=== PATIENT | male | born 1940 | race Caucasian/White ===

== ENCOUNTER → 2018-01-01 09:49 | Outpatient (CLI) | payer MEDICARE, SELFPAY ==
[2018-01-01 10:40] LABS: Add Manual Diff / Slide Review NO; Basophils Percent Auto 1.1 % (0-2); Eosinophils Percent Auto 2.6 % (2-4); Hematocrit 45.9 % (41-53); Hemoglobin 16.1 g/dL (13.5-17.5); Mean Corpuscular HGB Conc 35.1 % (30-36); Mean Corpuscular Hemoglobin 31.3 PG (26-34); Mean Corpuscular Volume 89.1 fL (80-100); Monocytes Percent Auto 8.9 % (3-14); Neutrophils Absolute Auto 3400 /uL (3000-5900); Neutrophils Percent Auto 68.4 % (50-75); Platelet Count 249 X10^3/uL (150-400); Red Blood Cell Count 5.15 X10^6/uL (4.5-5.9); Red Cell Distribution Width 14.2 % (11.6-14.8)
[2018-01-01 11:08] LABS: Alanine Aminotransferase 35 IU/L (21-72); Albumin Globulin Ratio 1.4 (1.0-2.8); Alkaline Phosphatase 48 U/L (38-126); Aspartate Aminotransferase 28 IU/L (17-59); BUN Creatinine Ratio 31.4 (6-22); Bilirubin Total 1.1 mg/dL (0.2-1.3); Blood Urea Nitrogen 22 mg/dL (9-20); Calcium 9.5 mg/dL (8.4-10.2); Carbon Dioxide 30 mmol/L (22-32); Chloride 106 mmol/L (98-107); Cholesterol 131 mg/dL (140-199); Estimated Glomerular Filt Rate > 60.0 mL/min (>60); Globulin 2.8 g/dL (1.7-4.1); Glucose 100 mg/dL (80-110); HDL Cholesterol 42 mg/dL (40-60); HEMOLYSIS < 15 (0-50); LDL Cholesterol Calculated 75 mg/dL (<100); Potassium 4.6 mmol/L (3.4-5.1); Sodium 143 mmol/L (137-145); Total Protein 6.8 g/dL (6.3-8.2); Triglycerides 71 mg/dL (35-150)
[2018-01-01 11:23] LABS: Free T3, Triiodothyronine Free 3.18 pg/mL (2.77-5.27)
[2018-01-01 11:36] LABS: Thyroid Stimulating Hormone 2.26 uIU/mL (0.47-4.68)
== END ==
PROVIDERS: PCP Internal Medicine; Visit Provider Internal Medicine
DX: I67.89 Other cerebrovascular disease (principal); I48.91 Unspecified atrial fibrillation; E78.00 Pure hypercholesterolemia, unspecified; E03.9 Hypothyroidism, unspecified
CPT/HCPCS: 36415; 80053; 80061; 84439; 84443; 84481; 85025

== ENCOUNTER → 2018-03-12 09:53 | Outpatient (CLI) | payer MEDICARE, SELFPAY ==
[2018-03-12 11:10] LABS: Erythrocyte Sedimentation Rate 2 MM/HR (0-15)
[2018-03-12 11:45] LABS: Rheumatoid Factor < 8.6 IU/mL (<12.0)
[2018-03-14 13:01] LABS: Angiotensin Converting Enzyme 36 U/L (9-67)
[2018-03-14 14:59] LABS: RPR Screen Nonreactive (Nonreactive)
[2018-03-14 18:06] LABS: HLA B27 POSITIVE (Negative)
[2018-03-14 20:35] LABS: 18 kD IgG Band Nonreactive; 23 kD IgG Band Nonreactive; 28 kD IgG Band Nonreactive; 30 kD IgG Band Nonreactive; 39 kD IgG Band Nonreactive; 41 kD IgG Bands Nonreactive; 45 kD IgG Band Nonreactive; 58 kD IgG Band Nonreactive; 66 kD IgG Band Nonreactive; 93 kD IgG Bands Nonreactive
== END ==
PROVIDERS: Family Provider Internal Medicine; PCP Internal Medicine; Visit Provider Ophthalmology
DX: H20.9 Unspecified iridocyclitis (principal)
CPT/HCPCS: 36415; 82164; 85651; 86430; 86592; 86618; 86780; 86812

== ENCOUNTER → 2018-03-24 09:25 | Outpatient (CLI) | payer MEDICARE, SELFPAY ==
--- NOTE | 2018-03-24 | DI.ECHO.S_ITS ---
[facility] +---------+ : : [address] : [address] [address] : : : : [id number] : : : : Phone: [phone]+ Echocardiogram Report + + :Name: ANURADHA HERMAN Study Date: 03/24/2018 Height: 70 in : :[facility] Exam Location: [facility] Weight: 220 lb : : Gender: Male BSA: 2.2 m2 : :: 1940 Age: 78 yrs BP: 112/72 mmHg: :Reason For Study: Atrial Fibrillation : :Ordering Physician: Yessy : :Manish Hargrove Performed By: Jolene Ventuar : :Referring: YESSY HARGROVE : + + Interpretation Summary 1) Mild concentric left ventricular hypertrophy with mildly reduced systolic function (EF about 45%). Global hypokinesis present. 2) Normal right ventricular size and function. 3) The left atrium is severely dilated. 4) No significant valvular abnormalities. 5) The ascending aorta is mildly enlarged at 4.1cm. 6) No prior Echo available for comparison. Procedure: A two-dimensional transthoracic echocardiogram with color flow and Doppler was performed. The study quality was technically adequate. There is no prior echocardiogram noted for this patient. The patient was in atrial fibrillation with heart rates between 49-80 bpm during the exam. Left Ventricle: The left ventricle is normal in size. There is mild concentric left ventricular hypertrophy. Proximal septal thickening is noted. Left ventricular ejection fraction is estimated to be 45 +/- 5%. (Zbwv-ny-tuna variability due to atrial fibrillation). Left ventricular systolic function is mildly reduced. There is mild global hypokinesis of the left ventricle. Diastolic function could not be accurately assessed due to atrial fibrillation. Right Ventricle: The right ventricle is normal in size and function. Atria: The left atrium is severely dilated. The right atrium is mild to moderately dilated. The interatrial septum is intact with no evidence for an atrial septal defect. Mitral Valve: The mitral valve is normal in structure and function. There is trace mitral regurgitation. Aortic Valve: The aortic valve is trileaflet. The aortic valve opens well. There is mild aortic valve sclerosis. There is no hemodynamically significant valvular aortic stenosis. There is trace aortic regurgitation. Tricuspid Valve: The tricuspid valve is normal in structure and function. There is mild to moderate tricuspid regurgitation. The right ventricular systolic pressure is estimated to be at least 26 mmHg based on an estimated right atrial pressure of 3 mm Hg. Pulmonic Valve: The pulmonic valve is not well seen, but is grossly normal. There is a trace or physiologic amount of pulmonic regurgitation. Great Vessels: The aortic root is normal size. The ascending aorta is mildly enlarged. The IVC is of normal diameter and collapses greater than 50% with a sniff. This suggests a low right atrial pressure of 3 mm Hg. Pericardium/ Pleura There is an anterior echo-free space consistent with a fat pad. There is no pericardial effusion. There is no pleural effusion. MMode/2D Measurements & Calculations LVIDd: 5.3 cm LVOT diam: 2.7 cm LVIDs: 3.4 cm Ao root diam: 3.9 cm FS: 36.2 % asc Aorta Diam: 4.1 cm IVSd: 1.2 cm Ao Arch Diam (Prox Trans): 3.2 cm LVPWd: 1.8 cm LV rueda. diameter/BSA (cm/m^2): 2.4 LV sys. diameter/BSA (cm/m^2): 1.6 LA A2 area: 41.7 cm2 RA long axis: 5.6 cm LA A4 area: 34.4 cm2 RA area: 20.9 cm2 LA length (vol): 7.4 cm RA vol: 66.6 ml LA vol: 164.5 ml RA : 30.6 ml/m2 LA vol index: 75.7 ml/m2 TAPSE: 2.1 cm Doppler Measurements & Calculations Ao V2 max: 100.9 cm/sec LVOT Max Brian: 68.8 cm/sec Ao V2 mean: 68.7 cm/sec LV V1 max P.9 mmHg Ao max P.1 mmHg LV V1 VTI: 11.1 cm Ao mean P.1 mmHg INES(I,D): 3.5 cm2 Ao V2 VTI: 18.3 cm INES(V,D): 3.9 cm2 sev ratio: 0.61 INES indexed to BSA (cm^2/m^2): 1.6 TR max brian: 238.6 cm/sec SV(LVOT): 63.3 ml TR max P.9 mmHg PA V2 max: 48.1 cm/sec PA V2 mean: 30.3 cm/sec PA mean P.42 mmHg PA pr(Accel): 30.8 mmHg Reading Physician:02:10 PM
== END ==
PROVIDERS: PCP Internal Medicine; Visit Provider Internal Medicine Cardiovascular Disease
DX: I48.1 Persistent atrial fibrillation (principal); I07.1 Rheumatic tricuspid insufficiency
CPT/HCPCS: 93306

== ENCOUNTER → 2018-10-02 08:33 | Outpatient (CLI) | payer OTHER, SELFPAY ==
[2018-10-02 10:02] LABS: Thyroid Stimulating Hormone 2.35 uIU/mL (0.47-4.68)
== END ==
PROVIDERS: PCP Nurse Practitioner Family; Visit Provider Nurse Practitioner Family
DX: E03.9 Hypothyroidism, unspecified (principal)
CPT/HCPCS: 36415; 84443

== ENCOUNTER → 2023-05-05 15:57 | Outpatient (CLI) | payer OTHER, SELFPAY ==
--- NOTE | 2023-05-05 16:31 | DI.ECHO.S_ITS ---
ADULT ECHOCARDIOGRAM Name: ANURDAHA HERMAN Study Date: 05/05/2023, 4: 31 PM : 1940 BP: 138 / 95 mmHg Gender: Male Height: 70 in Age: 83 Years Weight: 225 lb BSA: 2.19 m?? Ordering: YESSY HARGROVE Referring: YESSY HARGROVE Clinician: Lenard Lenz Reason For Study: CARDIOMYOPATHY History: Summary Statements 1) Normal left ventricular size with low normal systolic function (EF 50-55%). 2) Mildly to moderately enlarged right ventricle with mildly reduced function. 3) There is mild aortic regurgitation. 4) Compared to the Echo done 03/24/2018, LVEF has improved from 45% to 50-55% on this study. Procedure: A two-dimensional transthoracic echocardiogram with color flow and Doppler was performed. The study quality was technically adequate. Comparison is made with the echocardiogram of 03/24/18. The patient was in atrial fibrillation with heart rates between 51-83 bpm during the exam. Left Ventricle: The left ventricle is normal in size. There is mild concentric left ventricular hypertrophy. The ejection fraction is estimated to be 50-55%. Right Ventricle: The right ventricle is mild to moderately dilated. Right ventricular systolic function is mildly reduced. Atria: The left atrium is mildly dilated. The right atrium is mildly dilated. Mitral Valve: The mitral valve is normal in structure and function. There is no mitral valve stenosis. There is mild to moderate mitral regurgitation. Aortic Valve: The aortic valve is trileaflet. There is no aortic valve stenosis. There is mild aortic regurgitation. Tricuspid Valve: The tricuspid valve is normal in structure and function. There has been no significant change since the previous study. There is mild tricuspid regurgitation. The right ventricular systolic pressure is estimated to be at least 33 mmHg based on an estimated right atrial pressure of 3 mm Hg. Pulmonic Valve: The pulmonic valve is not well visualized. There is no pulmonic valvular stenosis. There is no pulmonic valvular regurgitation. Great Vessels: The aortic root is borderline dilated. The ascending aorta is at the upper limits of normal in size. The inferior vena cava appeared normal. Pericardium/ Pleura: There is no pericardial effusion. There is no pleural effusion. 2D and M-Mode Measurements and Calculations LVIDd: 5.7 cm LVOT diam: 2.7 cm LVIDs: 4.0 cm Ao root diam: 3.8 cm IVSd: 1.33 cm asc Aorta Diam: 3.8 cm LVPWd: 1.09 cm Ao Arch Diam (Prox Trans): 3.2 cm LV rueda. diameter/BSA (cm/m^2): 2.6 LV sys. diameter/BSA (cm/m^2): 1.83 FS: 29.1 % RVD1 (basal): 5.6 cm IVC diam: 2.22 cm RVD2 (mid): 4.4 cm TAPSE: 1.98 cm LA A4 area: 28.8 cm?? RA area: 24.4 cm?? LA A2 area: 23.6 cm?? RA long axis: 5.6 cm LA length (vol): 6.7 cm RA vol: 89.6 ml LA vol: 86.7 ml RA : 40.8 ml/m?? LA vol index: 39.5 ml/m?? Doppler Measurements and Calculations Ao V2 max: 92.4 cm/sec LVOT Max Brian: 76.3 cm/sec Ao V2 mean: 64.9 cm/sec LV V1 max P.97 mmHg Ao V2 VTI: 16.7 cm LV V1 VTI: 15.4 cm Ao max P.4 mmHg Ao mean P.86 mmHg INES(I,D): 5.3 cm?? INES(V,D): 4.7 cm?? INES indexed to BSA (cm^2/m^2): 2.40 sev ratio: 0.92 MV E max brian: 67.2 cm/sec MV dec time: 0.18 sec MV A max brian: 21.0 cm/sec MV E/A: 3.2 Med Peak E' Brian: 8.6 cm/sec E/E' med: 7.8 Lat Peak E' Brian: 11.5 cm/sec E/E' lat: 5.8 E/e' average: 6.8 TR max brian: 264.6 cm/sec PA V2 max: 87.3 cm/sec TR max P.0 mmHg PA mean P.48 mmHg Yessy Hargrove Electronically signed by: Yessy Hargrove 05/05/2023, 5: 25 PM
== END ==
PROVIDERS: PCP Nurse Practitioner Family; Referring Provider Internal Medicine Cardiovascular Disease; Visit Provider Internal Medicine Cardiovascular Disease
DX: I42.9 Cardiomyopathy, unspecified (principal); I08.3 Combined rheumatic disorders of mitral, aortic and tricuspid valves
CPT/HCPCS: 93306

== ENCOUNTER → 2024-02-19 09:37 | Outpatient (CLI) | payer OTHER, SELFPAY ==
[2024-02-19 10:59] LABS: Hematocrit 45.4 % (41-53); Hemoglobin 15.6 g/dL (13.5-17.5); Mean Corpuscular HGB Conc 34.3 % (30-36); Mean Corpuscular Hemoglobin 31.5 PG (26-34); Mean Corpuscular Volume 91.9 fL (80-100); Platelet Count 247 X10^3/uL (150-400); Red Blood Cell Count 4.94 X10^6/uL (4.5-5.9); White Blood Cell Count 4.6 X10^3/uL (4.5-11.0)
[2024-02-19 11:10] LABS: BUN Creatinine Ratio 21.4 (6-22); Blood Urea Nitrogen 15 mg/dL (9-20); Calcium 9.9 mg/dL (8.4-10.2); Carbon Dioxide 25 mmol/L (22-32); Chloride 109 mmol/L (98-107); Cholesterol 130 mg/dL (140-199); Estimated Glomerular Filt Rate > 60 mL/min (>60); Glucose 97 mg/dL (80-110); HDL Cholesterol 46 mg/dL (40-60); HEMOLYSIS < 15 (0-50); LDL Cholesterol Calculated 73 mg/dL (<100); Potassium 4.4 mmol/L (3.4-5.1); Sodium 140 mmol/L (137-145); Triglycerides 56 mg/dL (35-150)
== END ==
LOC: LAB 09:39
PROVIDERS: PCP Nurse Practitioner Family; Referring Provider Internal Medicine Cardiovascular Disease; Visit Provider Internal Medicine Cardiovascular Disease
DX: E78.5 Hyperlipidemia, unspecified (principal); I48.19 Other persistent atrial fibrillation
CPT/HCPCS: 36415; 80048; 80061; 85027

== ENCOUNTER 2024-02-24 14:24 | Emergency (ER) | payer OTHER, SELFPAY ==
[2024-02-24] VITALS (35 sets, daily range): BP systolic 126–161; BP diastolic 64–100; PULSE 55–75; RESP 12–24; TEMP 36.9; O2SAT 94–98; BMI 31.5
--- NOTE | 2024-02-24 15:04 | DI.CT.S_ITS ---
PROCEDURE: CT HEAD/BRAIN WO CON INDICATIONS: confusion/headache TECHNIQUE: Noncontrast 4.5 mm thick angled axial sections acquired from the foramen magnum to the vertex, with coronal and sagittal reformats. For radiation dose reduction, the following was used: automated exposure control, adjustment of mA and/or kV according to patient size. COMPARISON: None. FINDINGS: Image quality: Diagnostic. CSF spaces: Basal cisterns are patent. No extra-axial fluid collections. The ventricles are symmetric in size and shape. Brain: Hemorrhagic mass in the left parietal lobe measuring 3.1 x 2.2 x 4.3 centimeter. Surrounding vasogenic edema but no significant mass effect. No midline shift. No herniation. Skull and face: Calvarium and visualized facial bones appear intact, without suspicious lesions. Sinuses: Visualized sinuses and mastoids are clear. 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 Differential does include intraparenchymal hemorrhage, although this would be less common in the absence of trauma or underlying process such as amyloidosis. Findings discussed with Dr. Luis at 3:39 p.m. On 02/24/2024. Dictated by: Talha Reed M.D. on 02/24/2024 at 15:37 Approved by: Talha Reed M.D. on 02/24/2024 at 15:40
--- NOTE | 2024-02-24 15:04 | DI.RAD.S_ITS ---
PROCEDURE: XR CHEST 1V INDICATIONS: altered mental status TECHNIQUE: One view of the chest was acquired. COMPARISON: None. FINDINGS: Surgical changes and devices: None. Lungs and pleura: Right middle lung zone consolidation. Mediastinum: Mediastinal contours appear normal. Heart size is enlarged. Bones and chest wall: No suspicious bony lesions. Overlying soft tissues appear unremarkable. IMPRESSION: Right middle lung zone consolidation concerning for pneumonia. Recommend follow-up in 1-2 months with chest x-ray to ensure resolution. Dictated by: Talha Reed M.D. on 02/24/2024 at 16:07 Approved by: Talha Reed M.D. on 02/24/2024 at 16:08
--- NOTE | 2024-02-24 15:20 | EKG_ITS ---
[address] [address] Test Date: 2024-02-24 Pat Name: Stephon Nunez Department: [facility] Room: Gender: Male Hall Worker: MELIDA : 1940 Requested By: Order Number: [id number] Reading MD: Toi Hernandez Measurements Intervals [place] Rate: 56 P: [place]: QRS: -16 QRSD: 92 T: 14 QT: 392 QTc: 378 Interpretive Statements Atrial fibrillation with slow ventricular response Electronically Signed On 02-25-2024 19:03:45 PST by Toi Hernandez
--- NOTE | 2024-02-24 15:29 | PC.NURSE ---
Per patient smile is always crooked. Hx of stroke in 2006 with no known lingering deficits.
--- NOTE | 2024-02-24 15:45 | ED_ITS ---
HPI - Altered Mental Status <Shauna Luis DO - Last Filed: 02/29/24 18:38> General Chief Complaint: Altered Mental Status Stated Complaint: Confusion, Problems w/Hand Eye Coordination Time Seen by Provider: 02/24/24 15:27 Source: RN notes reviewed and old records reviewed Mode of arrival: Ambulatory Limitations: no limitations History of Present Illness HPI narrative: 84-year-old history of atrial fibrillation on Eliquis patient presents with complaint of sudden onset headache yesterday developed confusion shortly thereafter. States headache was much more intense yesterday has improved but is still present today. He and his note he has had a lot more effort and having to focus and has been confused. Forgot how to use a remote control, walked into a door, he has had trouble with some daily activities. He has not had any neck pain. No numbness, tingling or weakness. He has been able to ambulate but has to be focused about where he is going. No nausea or vomiting. No chest pain or shortness of breath. He does not appreciate any speech changes. Has some macular degeneration states his vision is actually little bit better. No issues such as incontinence, no issues with bowel movements or urination. Patient has not had any swelling in extremities. Did not have any trauma or injuries that they recall. He states Eliquis as his only daily medication he takes this for atrial fibrillation states no medication for rate control. Had prior hernia repair. Questionable allergy to [place]. No tobacco, alcohol once yearly, no recreational drugs. Saw his organ tuner electronic who was concerned about bleed and sent patient for evaluation. Dr. Hargrove is his organ tuner electronic. Jolene Hawkins is his primary care provider. Related Data Allergies Allergy/AdvReac Type Severity Reaction Status Date / Time hydrocodone [From [place]] Allergy Rash Verified 02/24/24 14:51 Review of Systems <Shauna Luis DO - Last Filed: 02/29/24 18:38> Review of Systems ROS Unobtainable: All systems reviewed & are unremarkable except as noted in HPI and below Patient History <Shauna Luis DO - Last Filed: 02/29/24 18:38> Social History Smoking Status: Never smoker Smoking Status: Never smoker alcohol intake frequency: holidays/special occasions only Substance Use Type: marijuana Exam <Shauna Luis DO - Last Filed: 02/29/24 18:38> Narrative Exam Narrative: GEN: well nourished, well appearing male, alert and oriented x 3, patient appears to be in mild distress. HEENT: Atraumatic, pupils are equal round reactive to light, extraocular movements are intact, nares are clear, TMs are clear with no fluid, there is no conjunctival pallor. Throat is clear without any exudates, erythema, tonsillar enlargement or uvular deviation, patient has some mild right facial droop with patient family state that is normal HEART: Regular rate and rhythm without murmur, clicks, rubs. Pulses are equal in upper and lower extremities LUNGS:Lungs clear to auscultation, no wheezes, rales, crackles, chest moves symmetrically ABD:bowel sounds normal, soft, non-tender, no guarding, rebound, rigidity, no masses noted, no hepatosplenomegaly :No CVA tenderness MSCL: Non-tender, no muscle atrophy, muscles strength 5/5 upper and lower extremities,no drift, full range of motion NEURO:CN 2-12 intact, sensation normal, finger nose finger test normal on right, mild difficulty on left. heel mcarthur test normal bilaterally. Initial Vital Signs Initial Vital Signs: Vital Signs Temperature 98.5 F 02/24/24 14:51 Pulse Rate 55 L 02/24/24 14:51 Respiratory Rate 16 02/24/24 14:51 Blood Pressure 135/88 02/24/24 14:51 Pulse Oximetry 97 02/24/24 14:51 Oxygen Delivery Method Room Air 02/24/24 14:51 <Elvi Lei DO - Last Filed: 02/25/24 02:06> Initial Vital Signs Initial Vital Signs: Vital Signs Temperature 98.5 F 02/24/24 14:51 Pulse Rate 55 L 02/24/24 14:51 Respiratory Rate 16 02/24/24 14:51 Blood Pressure 135/88 02/24/24 14:51 Pulse Oximetry 97 02/24/24 14:51 Oxygen Delivery Method Room Air 02/24/24 14:51 Scores <Shauna Luis DO - Last Filed: 02/29/24 18:38> GCS Reji coma scale eye opening: Spontaneous Reji coma scale verbal response: Orientated Reji coma scale motor response: Obey commands [place] coma scale total score: 15 <Elvi Lei, DO - Last Filed: 02/25/24 02:06> GCS Reji coma scale total score: 15 Course <Shauna Luis, DO - Last Filed: 02/29/24 18:38> Orders Ordered: Discontinued Medications Acetaminophen (Acetaminophen 325 Mg Tablet) 975 mg PO NOW ONE Stop: 02/24/24 20:02 Last Admin: 02/24/24 20:03 Dose: 975 mg Documented By: NOEMI Prothrombin Complex Concent ( Human) 2,000 unit/Miscellaneous 80 mls @ 718.488 mls/hr IV NOW ONE; Protocol Stop: 02/24/24 15:59 Last Infusion: 02/24/24 16:55 Dose: Infused Documented By: Admin: 02/24/24 16:29 Dose: 2.1 unit/kg/min, 504 mls/hr Documented By: MARIANN Morphine Sulfate (Morphine 2 Mg/Ml Inj) 2 mg IV NOW ONE Stop: 02/25/24 00:03 Last Admin: 02/25/24 00:06 Dose: 2 mg Documented By: NOEMI Ondansetron HCl (Ondansetron 4 Mg/2 Ml Inj) 4 mg IV NOW ONE Stop: 02/25/24 00:03 Last Admin: 02/25/24 00:06 Dose: 4 mg Documented By: NOEMI Vital Signs Vital signs: Vital Signs - 8 hr 02/24/24 18:42 02/24/24 18:45 02/24/24 18:46 Pulse Rate 67 72 Respiratory Rate 20 Blood Pressure 159/79 H Pulse Oximetry 96 97 Oxygen Delivery Method Room Air 02/24/24 19:00 02/24/24 19:00 02/24/24 19:15 Pulse Rate 69 Respiratory Rate 20 Blood Pressure 146/77 H 134/74 Pulse Oximetry 97 Oxygen Delivery Method 02/24/24 19:15 02/24/24 19:30 02/24/24 19:30 Pulse Rate 64 59 L Respiratory Rate 19 19 Blood Pressure 144/84 H Pulse Oximetry 96 97 Oxygen Delivery Method Room Air Room Air 02/24/24 19:45 02/24/24 19:45 02/24/24 20:00 Pulse Rate 59 L 66 Respiratory Rate 13 14 Blood Pressure 141/82 H Pulse Oximetry 96 95 Oxygen Delivery Method Room Air 02/24/24 20:00 02/24/24 20:15 02/24/24 20:15 Pulse Rate 61 Respiratory Rate 16 Blood Pressure 140/88 138/85 Pulse Oximetry 96 Oxygen Delivery Method 02/24/24 20:30 02/24/24 20:30 02/24/24 20:45 Pulse Rate 61 Respiratory Rate 15 Blood Pressure 141/70 H 134/79 Pulse Oximetry 96 Oxygen Delivery Method Room Air 02/24/24 20:45 02/24/24 21:00 02/24/24 21:00 Pulse Rate 72 56 L Respiratory Rate 12 15 Blood Pressure 134/91 H Pulse Oximetry 96 96 Oxygen Delivery Method Room Air Room Air 02/24/24 21:15 02/24/24 21:15 02/24/24 21:30 Pulse Rate 57 L Respiratory Rate 19 Blood Pressure 140/73 156/77 H Pulse Oximetry 97 Oxygen Delivery Method Room Air 02/24/24 21:30 02/24/24 21:45 02/24/24 21:45 Pulse Rate 63 69 Respiratory Rate 13 17 Blood Pressure 143/94 H Pulse Oximetry 96 97 Oxygen Delivery Method Room Air 02/24/24 22:00 02/24/24 22:09 02/24/24 22:09 Pulse Rate 58 L 71 Respiratory Rate 24 Blood Pressure 141/78 H Pulse Oximetry 96 96 Oxygen Delivery Method Room Air 02/24/24 22:15 02/24/24 22:15 02/24/24 22:30 Pulse Rate 66 70 Respiratory Rate 19 16 Blood Pressure 155/73 H Pulse Oximetry 96 97 Oxygen Delivery Method Room Air 02/24/24 22:30 02/24/24 22:45 02/24/24 22:45 Pulse Rate 67 Respiratory Rate 17 Blood Pressure 141/74 H 130/64 Pulse Oximetry 95 Oxygen Delivery Method 02/24/24 23:00 02/24/24 23:00 02/24/24 23:15 Pulse Rate 58 L Respiratory Rate 18 Blood Pressure 126/64 135/67 Pulse Oximetry 96 Oxygen Delivery Method Room Air 02/24/24 23:15 02/24/24 23:30 02/24/24 23:30 Pulse Rate 62 75 Respiratory Rate 14 20 Blood Pressure 147/79 H Pulse Oximetry 96 96 Oxygen Delivery Method 02/24/24 23:45 02/24/24 23:45 02/25/24 00:00 Pulse Rate 74 Respiratory Rate 17 Blood Pressure 148/100 H 151/87 H Pulse Oximetry 96 Oxygen Delivery Method Room Air 02/25/24 00:00 02/25/24 00:14 02/25/24 00:22 Pulse Rate 75 78 Respiratory Rate 14 15 Blood Pressure 129/76 Pulse Oximetry 97 Oxygen Delivery Method Room Air 02/25/24 00:22 02/25/24 00:30 02/25/24 01:00 Pulse Rate 85 85 75 Respiratory Rate 21 18 Blood Pressure Pulse Oximetry 95 95 Oxygen Delivery Method 02/25/24 01:19 02/25/24 01:19 Pulse Rate 77 Respiratory Rate 21 Blood Pressure 142/71 H Pulse Oximetry 96 Oxygen Delivery Method Room Air <Elvi Lei DO - Last Filed: 02/25/24 02:06> Orders Ordered: Discontinued Medications Acetaminophen (Acetaminophen 325 Mg Tablet) 975 mg PO NOW ONE Stop: 02/24/24 20:02 Last Admin: 02/24/24 20:03 Dose: 975 mg Documented By: NOEMI Prothrombin Complex Concent ( Human) 2,000 unit/Miscellaneous 80 mls @ 718.488 mls/hr IV NOW ONE; Protocol Stop: 02/24/24 15:59 Last Infusion: 02/24/24 16:55 Dose: Infused Documented By: Admin: 02/24/24 16:29 Dose: 2.1 unit/kg/min, 504 mls/hr Documented By: MARIANN Morphine Sulfate (Morphine 2 Mg/Ml Inj) 2 mg IV NOW ONE Stop: 02/25/24 00:03 Last Admin: 02/25/24 00:06 Dose: 2 mg Documented By: NOEMI Ondansetron HCl (Ondansetron 4 Mg/2 Ml Inj) 4 mg IV NOW ONE Stop: 02/25/24 00:03 Last Admin: 02/25/24 00:06 Dose: 4 mg Documented By: NOEMI Vital Signs Vital signs: Vital Signs - 8 hr 02/24/24 18:42 02/24/24 18:45 02/24/24 18:46 Pulse Rate 67 72 Respiratory Rate 20 Blood Pressure 159/79 H Pulse Oximetry 96 97 Oxygen Delivery Method Room Air 02/24/24 19:00 02/24/24 19:00 02/24/24 19:15 Pulse Rate 69 Respiratory Rate 20 Blood Pressure 146/77 H 134/74 Pulse Oximetry 97 Oxygen Delivery Method 02/24/24 19:15 02/24/24 19:30 02/24/24 19:30 Pulse Rate 64 59 L Respiratory Rate 19 19 Blood Pressure 144/84 H Pulse Oximetry 96 97 Oxygen Delivery Method Room Air Room Air 02/24/24 19:45 02/24/24 19:45 02/24/24 20:00 Pulse Rate 59 L 66 Respiratory Rate 13 14 Blood Pressure 141/82 H Pulse Oximetry 96 95 Oxygen Delivery Method Room Air 02/24/24 20:00 02/24/24 20:15 02/24/24 20:15 Pulse Rate 61 Respiratory Rate 16 Blood Pressure 140/88 138/85 Pulse Oximetry 96 Oxygen Delivery Method 02/24/24 20:30 02/24/24 20:30 02/24/24 20:45 Pulse Rate 61 Respiratory Rate 15 Blood Pressure 141/70 H 134/79 Pulse Oximetry 96 Oxygen Delivery Method Room Air 02/24/24 20:45 02/24/24 21:00 02/24/24 21:00 Pulse Rate 72 56 L Respiratory Rate 12 15 Blood Pressure 134/91 H Pulse Oximetry 96 96 Oxygen Delivery Method Room Air Room Air 02/24/24 21:15 02/24/24 21:15 02/24/24 21:30 Pulse Rate 57 L Respiratory Rate 19 Blood Pressure 140/73 156/77 H Pulse Oximetry 97 Oxygen Delivery Method Room Air 02/24/24 21:30 02/24/24 21:45 02/24/24 21:45 Pulse Rate 63 69 Respiratory Rate 13 17 Blood Pressure 143/94 H Pulse Oximetry 96 97 Oxygen Delivery Method Room Air 02/24/24 22:00 02/24/24 22:09 02/24/24 22:09 Pulse Rate 58 L 71 Respiratory Rate 24 Blood Pressure 141/78 H Pulse Oximetry 96 96 Oxygen Delivery Method Room Air 02/24/24 22:15 02/24/24 22:15 02/24/24 22:30 Pulse Rate 66 70 Respiratory Rate 19 16 Blood Pressure 155/73 H Pulse Oximetry 96 97 Oxygen Delivery Method Room Air 02/24/24 22:30 02/24/24 22:45 02/24/24 22:45 Pulse Rate 67 Respiratory Rate 17 Blood Pressure 141/74 H 130/64 Pulse Oximetry 95 Oxygen Delivery Method 02/24/24 23:00 02/24/24 23:00 02/24/24 23:15 Pulse Rate 58 L Respiratory Rate 18 Blood Pressure 126/64 135/67 Pulse Oximetry 96 Oxygen Delivery Method Room Air 02/24/24 23:15 02/24/24 23:30 02/24/24 23:30 Pulse Rate 62 75 Respiratory Rate 14 20 Blood Pressure 147/79 H Pulse Oximetry 96 96 Oxygen Delivery Method 02/24/24 23:45 02/24/24 23:45 02/25/24 00:00 Pulse Rate 74 Respiratory Rate 17 Blood Pressure 148/100 H 151/87 H Pulse Oximetry 96 Oxygen Delivery Method Room Air 02/25/24 00:00 02/25/24 00:14 02/25/24 00:22 Pulse Rate 75 78 Respiratory Rate 14 15 Blood Pressure 129/76 Pulse Oximetry 97 Oxygen Delivery Method Room Air 02/25/24 00:22 02/25/24 00:30 02/25/24 01:00 Pulse Rate 85 85 75 Respiratory Rate 21 18 Blood Pressure Pulse Oximetry 95 95 Oxygen Delivery Method 02/25/24 01:19 02/25/24 01:19 Pulse Rate 77 Respiratory Rate 21 Blood Pressure 142/71 H Pulse Oximetry 96 Oxygen Delivery Method Room Air MDM - Altered Mental Status <Shauna Luis, DO - Last Filed: 02/29/24 18:38> Lab Data 02/24/24 15:35 02/24/24 15:35 Labs: Lab Results 02/24/24 02/24/24 Range/Units 15:35 16:58 WBC 6.0 (4.5-11.0) X10^3/uL RBC 5.07 (4.5-5.9) X10^6/uL Hgb 15.8 (13.5-17.5) g/dL Hct 46.9 (41-53) % MCV 92.5 (80-100) fL MCH 31.2 (26-34) PG MCHC 33.7 (30-36) % RDW 13.8 (11.6-14.8) % Plt Count 229 (150-400) X10^3/uL Neut % (Auto) 75.5 H (50-75) % Lymph % (Auto) 14.5 L (25-40) % [place] % (Auto) 7.4 (3-14) % Eos % (Auto) 1.9 L (2-4) % Baso % (Auto) 0.7 (0-2) % Neut # (Auto) 4600 (6121-5383) /uL Lymph # (Auto) 900 L (1177-3936) /uL [place] # (Auto) 400 (0-900) /uL Eos # (Auto) 100 (0-450) /uL Baso # (Auto) 0 (0-100) /uL PT 16.4 H (9.4-12.5) SECONDS INR 1.5 H (0.9-1.3) APTT 44 H (25.1-36.5) SECONDS Sodium 138 (137-145) mmol/L Potassium 4.1 (3.4-5.1) mmol/L Chloride 107 (98-107) mmol/L Carbon Dioxide 26 (22-32) mmol/L BUN 15 (9-20) mg/dL Creatinine 0.71 (0.66-1.25) mg/dL Estimated GFR > 60 (>60) mL/min BUN/Creatinine Ratio 21.1 (6-22) Glucose 121 H (80-110) mg/dL Calcium 10.0 (8.4-10.2) mg/dL Total Bilirubin 1.0 (0.2-1.3) mg/dL AST 33 (17-59) IU/L ALT 24 (<50) IU/L Alkaline Phosphatase 45 (38-126) U/L Total Protein 6.7 (6.3-8.2) g/dL Albumin 4.3 (3.5-5.0) g/dL Globulin 2.4 (1.7-4.1) g/dL Albumin/Globulin Ratio 1.8 (1.0-2.8) U Opiates 300ng/mL cut Negative (Negative) Ur Oxycodone Screen Negative (Negative) Urine Methadone Screen Negative (Negative) Ur Barbiturates Screen Negative (Negative) U Tricyclic Antidepress Negative (Negative) Ur Phencyclidine Scrn Negative (Negative) Ur Amphetamines Screen Negative (Negative) U Methamphetamines Scrn Negative (Negative) Ur MDMA Scrn (Ecstasy) Negative (Negative) U Benzodiazepines Scrn Negative (Negative) Urine Cocaine Screen Negative (Negative) U Marijuana (THC) Screen Negative (Negative) Urine pH Normal (Normal) Urine Specific [place] Normal (Normal) Ur Creatinine Normal (Normal) Point of Care Testing Glucose POC 127 Urine Dip Bedside Urine Glucose Negative Bedside Urine Bilirubin - Negative Bedside Urine Ketone - Negative Urine Specific [place] 1.015 Bedside Urine Occult Blood - Negative Bedside Urine pH 6.0 Bedside Urine Protein - Negative Bedside Urine Urobilinogen - Negative Bedside Urine Nitrite - Negative Bedside Urine Leukocytes - Negative Esterase Imaging Data CT scan - head: Radiologist's Impression: [address] [address] [address] Scan Report Signed Patient: Stephon Nunez MR#: [id number] : 1940 Acct:[id number] Age/Sex: 84 / M Date of Service: 02/24/24 Loc: ED Accession Number: [id number] Procedure: CT head/brain wo con Ordering Provider: Shauna Luis D.O. PROCEDURE: CT HEAD/BRAIN WO CON INDICATIONS: confusion/headache TECHNIQUE: Noncontrast 4.5 mm thick angled axial sections acquired from the foramen magnum to the vertex, with coronal and sagittal reformats. For radiation dose reduction, the following was used: automated exposure control, adjustment of mA and/or kV according to patient size. COMPARISON: None. FINDINGS: Image quality: Diagnostic. CSF spaces: Basal cisterns are patent. No extra-axial fluid collections. The ventricles are symmetric in size and shape. Brain: Hemorrhagic mass in the left parietal lobe measuring 3.1 x 2.2 x 4.3 centimeter. Surrounding vasogenic edema but no significant mass effect. No midline shift. No herniation. Skull and face: Calvarium and visualized facial bones appear intact, without suspicious lesions. Sinuses: Visualized sinuses and mastoids are clear. 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 Differential does include intraparenchymal hemorrhage, although this would be less common in the absence of trauma or underlying process such as amyloidosis. Findings discussed with Dr. Luis at 3:39 p.m. On 02/24/2024. Dictated by: Talha Reed M.D. on 02/24/2024 at 15:37 Approved by: Talha Reed M.D. on 02/24/2024 at 15:40 ECG Data Attestation: I personally reviewed and interpreted this ECG as follows: Interpretation: AFib slow ventricular response rate of 56, QRS of 92 QTC of 378, no acute ST elevation or depression noted. MDM Narrative Medical decision making narrative: 84-year-old on Eliquis with sudden onset of headache yesterday and confusion headaches improved but continues to be persistently confused without any major other neurologic changes. Patient has some mild drift on examination that is new, does have little bit of right facial droop but family states and patient states that is normal. Imaging is concerning for intraparenchymal bleed versus metastatic lesion or hemorrhagic mass. Spoke with patient and family, he has POLST form Patient is on Eliquis, spoke with pharmacy we will give Kcentra 2000 units we will hold vitamin K as no reveral agent available. Head of bed at 30 degrees. EKG shows AFib with slow response Chest x-ray, right middle lung zone consolidation concerning for pneumonia recommend follow up in 1-2 months chest x-ray to ensure resolution. Patient is currently asymptomatic. Head CT shows suspected hemorrhage mass versus metastatic lesion to the left parietal lobe measuring 3.1 x 2.2 x 4.3 cm with surrounding vasogenic edema no significant mass effect differential includes intraparenchymal hemorrhage. Results called to myself by Dr. Reed radiology Labs show white count of 6, hemoglobin of 15 platelets of 229, 1540 consult with [facility] for suspected intraparenchymal bleed versus hemorrhagic mass based on patient's history I suspect bleed or hemorrhagic mass over metastatic lesion. Patient has a mild neurologic changes. 1612 Spoke with coordinator and ED physician, Dr. Brito. Would recommend consultation with Neurosurgery as patient is stable at this time. 1640: Coordinator re-contacted asked for CT angio of the head as well as brain MR with and without contrast for further delineation and then re-contact Neurosurgery. CT angio results show redemonstration of intraparenchymal hemorrhage involving left parietal lobe measuring 3.4 x 2.3 x 4.2 cm no definite mass lesion identified no significant edema or midline shift structures consider further eval with the MR with and without contrast. Results pushed to [facility]. MR obtained results pending. Patient has been stable Throughout his stay. Patient signed out to Dr. Lei with plan to call back with CT angio and MR results to Neurosurgery. CT angio results of already been pushed along with the report to [facility]. Dr. Lei patient signed out to me by Dr. Luis. I have seen and evaluated patient myself. Awake alert he is confused bowel age and year. Edi Manager strength is equal bilaterally able to lift both legs. He does have some chronic right facial droop which confirms is normal . MRI confirms hemorrhage in the left parietal lobe which measures approximately the same. 22:22 Dr. Fish neurosurgery at [facility] reviewed images recent patient should be transferred. Patient has been stable no significant increase in bleeding he did receive Kcentra. Due to weather air lift is not flying patient will be going by ground <Elvi Lei, DO - Last Filed: 02/25/24 02:06> Lab Data Labs: Lab Results 02/24/24 02/24/24 Range/Units 15:35 16:58 WBC 6.0 (4.5-11.0) X10^3/uL RBC 5.07 (4.5-5.9) X10^6/uL Hgb 15.8 (13.5-17.5) g/dL Hct 46.9 (41-53) % MCV 92.5 (80-100) fL MCH 31.2 (26-34) PG MCHC 33.7 (30-36) % RDW 13.8 (11.6-14.8) % Plt Count 229 (150-400) X10^3/uL Neut % (Auto) 75.5 H (50-75) % Lymph % (Auto) 14.5 L (25-40) % [place] % (Auto) 7.4 (3-14) % Eos % (Auto) 1.9 L (2-4) % Baso % (Auto) 0.7 (0-2) % Neut # (Auto) 4600 (5900-1320) /uL Lymph # (Auto) 900 L (4783-3676) /uL [place] # (Auto) 400 (0-900) /uL Eos # (Auto) 100 (0-450) /uL Baso # (Auto) 0 (0-100) /uL PT 16.4 H (9.4-12.5) SECONDS INR 1.5 H (0.9-1.3) APTT 44 H (25.1-36.5) SECONDS Sodium 138 (137-145) mmol/L Potassium 4.1 (3.4-5.1) mmol/L Chloride 107 (98-107) mmol/L Carbon Dioxide 26 (22-32) mmol/L BUN 15 (9-20) mg/dL Creatinine 0.71 (0.66-1.25) mg/dL Estimated GFR > 60 (>60) mL/min BUN/Creatinine Ratio 21.1 (6-22) Glucose 121 H (80-110) mg/dL Calcium 10.0 (8.4-10.2) mg/dL Total Bilirubin 1.0 (0.2-1.3) mg/dL AST 33 (17-59) IU/L ALT 24 (<50) IU/L Alkaline Phosphatase 45 (38-126) U/L Total Protein 6.7 (6.3-8.2) g/dL Albumin 4.3 (3.5-5.0) g/dL Globulin 2.4 (1.7-4.1) g/dL Albumin/Globulin Ratio 1.8 (1.0-2.8) U Opiates 300ng/mL cut Negative (Negative) Ur Oxycodone Screen Negative (Negative) Urine Methadone Screen Negative (Negative) Ur Barbiturates Screen Negative (Negative) U Tricyclic Antidepress Negative (Negative) Ur Phencyclidine Scrn Negative (Negative) Ur Amphetamines Screen Negative (Negative) U Methamphetamines Scrn Negative (Negative) Ur MDMA Scrn (Ecstasy) Negative (Negative) U Benzodiazepines Scrn Negative (Negative) Urine Cocaine Screen Negative (Negative) U Marijuana (THC) Screen Negative (Negative) Urine pH Normal (Normal) Urine Specific [place] Normal (Normal) Ur Creatinine Normal (Normal) Point of Care Testing Glucose POC 127 Urine Dip Bedside Urine Glucose Negative Bedside Urine Bilirubin - Negative Bedside Urine Ketone - Negative Urine Specific [place] 1.015 Bedside Urine Occult Blood - Negative Bedside Urine pH 6.0 Bedside Urine Protein - Negative Bedside Urine Urobilinogen - Negative Bedside Urine Nitrite - Negative Bedside Urine Leukocytes - Negative Esterase Imaging Data MR Brain: Radiologist's Impression: PROCEDURE: MR HEAD/BRAIN WO/W CON INDICATIONS: mass vs bleed, requested by neurosx TECHNIQUE: Noncontrast axial T1 spin echo, axial T2 fast spin echo, sagittal and axial FLAIR, coronal T2 fast spin echo, axial gradient echo, axial diffusion and ADC through the brain. After the administration of contrast, axial and coronal and sagittal T1 spin echo with fat saturation through the brain. COMPARISON: [facility], CT, CT ANGIO HEAD AND NECK, 02/24/2024, 16:52. [facility], CT, CT HEAD/BRAIN WO CON, 02/24/2024, 15:21. FINDINGS: Image quality: Diagnostic CSF spaces: Basal cisterns are patent. No extra-axial fluid collections. Ventricles are stable in the in size and shape. Brain: No midline shift. Redemonstration of intraparenchymal lesion/hemorrhage involving the posterior left parietal lobe measuring approximately 3.6 x 2.6 cm in axial cross-sectional dimension (19/series 10) and approximately 4.3 cm in craniocaudal dimension (19/series 8). There is adjacent mild vasogenic edema. Minimal overlying sulcal effacement. No midline shift structures. There is mild thin peripheral diffusion restriction as well as more heterogeneous area of diffusion restriction posteriorly. Heterogeneous, mild enhancement of the periphery as well as a heterogeneous component posteriorly within area of hemorrhage as seen on comparison CT. Numerous scattered foci of variably sized blooming artifact noted throughout the bilateral cerebral hemispheres to include adjacent to area of hemorrhage. There is cerebral volume loss for age. There is periventricular white matter chronic small vessel ischemic change. The brainstem appears normal. No chronic ischemic insults. Normal intravascular flow voids are present. Skull and face: Calvarial marrow is normal in signal. Orbits appear normal. Sinuses: Sinuses and mastoids appear clear. IMPRESSION: Redemonstration of a 3.6 x 2.6 x 4.3 cm area hemorrhage involving the posterior left parietal lobe with associated heterogeneous diffusion restriction abnormalities and mild enhancement. No definite mass lesion visualized. There are also numerous scattered foci of blooming artifact suggestive of microhemorrhages. Findings may represent hypertensive intracranial hemorrhage versus cerebral amyloid angiopathy. Other considerations include possible hemorrhagic infarction if there are neuro deficits versus possible hemorrhage associated with neoplasm/metastasis. Hemorrhagic parenchymal contusion is conceivable if there is history of trauma. Recommend short interval follow-up brain MRI without and with contrast in approximately 1 month to allow for resolution of hemorrhage and to better evaluate for possible underlying mass. Dictated by: Husam Mendoza M.D. on 02/24/2024 at 20:56 MDM Narrative Medical decision making narrative: 84-year-old on Eliquis with sudden onset of headache yesterday and confusion headaches improved but continues to be persistently confused without any major other neurologic changes. Patient has some mild drift on examination that is new, does have little bit of right facial droop but family states and patient states that is normal. Imaging is concerning for intraparenchymal bleed versus metastatic lesion or hemorrhagic mass. Spoke with patient and family, he has POLST form Patient is on Eliquis, spoke with pharmacy we will give Kcentra 2000 units we will hold vitamin K as no reveral agent available. Head of bed at 30 degrees. EKG shows AFib with slow response Chest x-ray, right middle lung zone consolidation concerning for pneumonia recommend follow up in 1-2 months chest x-ray to ensure resolution. Patient is currently asymptomatic. Head CT shows suspected hemorrhage mass versus metastatic lesion to the left parietal lobe measuring 3.1 x 2.2 x 4.3 cm with surrounding vasogenic edema no significant mass effect differential includes intraparenchymal hemorrhage. Results called to myself by Dr. Reed radiology Labs show white count of 6, hemoglobin of 15 platelets of 229, 1540 consult with [facility] for suspected intraparenchymal bleed versus hemorrhagic mass based on patient's history I suspect bleed or hemorrhagic mass over metastatic lesion. Patient has a mild neurologic changes. 1612 Spoke with coordinator and ED physician, Dr. Brito. Would recommend consultation with Neurosurgery as patient is stable at this time. 1640: Coordinator re-contacted asked for CT angio of the head as well as brain MR with and without contrast for further delineation and then re-contact Neurosurgery. CT angio results show redemonstration of intraparenchymal hemorrhage involving left parietal lobe measuring 3.4 x 2.3 x 4.2 cm no definite mass lesion identified no significant edema or midline shift structures consider further eval with the MR with and without contrast. Results pushed to [facility]. MR obtained: Dr. Lei patient signed out to me by Dr. Luis. I have seen and evaluated patient myself. Awake alert he is confused bowel age and year. Edi Manager strength is equal bilaterally able to lift both legs. He does have some chronic right facial droop which confirms is normal . MRI confirms hemorrhage in the left parietal lobe which measures approximately the same. 22:22 Dr. Fish neurosurgery at [facility] reviewed images recent patient should be transferred. Patient has been stable no significant increase in bleeding he did receive Kcentra. Due to weather air lift is not flying patient will be going by ground Critical Care Time <Shauna C Toby, DO - Last Filed: 02/29/24 18:38> Critical Care Time Critical Care Time: Yes Total Critical Care Time: 35 Attestation: The high probability of a clinically significant, sudden or life threatening deterioration of the neurologic system(s) required my full and direct attention, intervention and personal management. The aggregate critical care time was [--] minutes. This time is in addition to time spent performing reported procedures but includes the following: [x] Data Review and interpretation [x] Patient assessment and monitoring of vital signs [x] Documentation [x] Medication orders and management <Elvi Lei, DO - Last Filed: 02/25/24 02:06> Critical Care Time Total Critical Care Time: 40 Attestation: The high probability of a clinically significant, sudden or life threatening deterioration of the neurologic system(s) required my full and direct attention, intervention and personal management. The aggregate critical care time was [40] minutes. This time is in addition to time spent performing reported procedures but includes the following: [x] Data Review and interpretation [x] Patient assessment and monitoring of vital signs [x] Documentation [x] Medication orders and management Discharge Plan Departure Patient Disposition: [facility] Clinical Impression: Intraparenchymal hemorrhage of brain Referrals: Terri Cohen ARNP [Primary Care Provider] -
[2024-02-24 15:47] LABS: Add Manual Diff / Slide Review NO; Basophils Absolute Auto 0 /uL (0-100); Basophils Percent Auto 0.7 % (0-2); Eosinophils Absolute Auto 100 /uL (0-450); Eosinophils Percent Auto 1.9 % (2-4); Hematocrit 46.9 % (41-53); Hemoglobin 15.8 g/dL (13.5-17.5); Lymphocytes Absolute Auto 900 /uL (1100-4500); Lymphocytes Percent Auto 14.5 % (25-40); Mean Corpuscular HGB Conc 33.7 % (30-36); Mean Corpuscular Hemoglobin 31.2 PG (26-34); Mean Corpuscular Volume 92.5 fL (80-100); Monocytes Absolute Auto 400 /uL (0-900); Monocytes Percent Auto 7.4 % (3-14); Neutrophils Absolute Auto 4600 /uL (1500-7000); Neutrophils Percent Auto 75.5 % (50-75); Platelet Count 229 X10^3/uL (150-400); Red Blood Cell Count 5.07 X10^6/uL (4.5-5.9); Red Cell Distribution Width 13.8 % (11.6-14.8)
[2024-02-24 15:56] LABS: INR 1.5 (0.9-1.3); Prothrombin Time 16.4 SECONDS (9.4-12.5)
[2024-02-24 15:59] LABS: PTT Partial Thromboplastin Tim 44 SECONDS (25.1-36.5)
[2024-02-24 16:11] LABS: Alanine Aminotransferase 24 IU/L (<50); Albumin 4.3 g/dL (3.5-5.0); Albumin Globulin Ratio 1.8 (1.0-2.8); Alkaline Phosphatase 45 U/L (38-126); Aspartate Aminotransferase 33 IU/L (17-59); BUN Creatinine Ratio 21.1 (6-22); Blood Urea Nitrogen 15 mg/dL (9-20); Carbon Dioxide 26 mmol/L (22-32); Chloride 107 mmol/L (98-107); Estimated Glomerular Filt Rate > 60 mL/min (>60); Globulin 2.4 g/dL (1.7-4.1); Glucose 121 mg/dL (80-110); HEMOLYSIS < 15 (0-50); Potassium 4.1 mmol/L (3.4-5.1); Sodium 138 mmol/L (137-145); Total Protein 6.7 g/dL (6.3-8.2)
--- NOTE | 2024-02-24 16:28 | PC.NURSE ---
Called and spoke with marjorie Tompkins regarding Prothrombin medication and upper hard limits. No protocol found on file. Confirmed with marjorie Tompkins to run medication at rates of 504mls/hr and not as originally ordered at 718.48 mls/hr.
[2024-02-24] MEDS: PROTHROMBIN CPLX(PCC)4FACT 2,000 UNIT in ISOOSMOTIC VEHICLE 0 ML 504 UNIT IV (16:29)
--- NOTE | 2024-02-24 16:38 | DI.CT.S_ITS ---
PROCEDURE: CT ANGIO HEAD AND NECK INDICATIONS: eval for bleed vs mass TECHNIQUE: After the administration of intravenous contrast, 1 mm thick sections acquired from the aortic arch through the [employer] [place]. 3-dimensional blymnok-cyceqfden-mkvrxpwmsr (MIP) and/or volume rendering reformats were acquired of the central intracranial vasculature and neck separately. For radiation dose reduction, the following was used: automated exposure control, adjustment of mA and/or kV according to patient size. COMPARISON: [facility], CT, CT HEAD/BRAIN WO CON, 02/24/2024, 15:21. FINDINGS: Image quality: Diagnostic. BRAIN: CSF spaces: Ventricles are stable in size and shape. Basal cisterns are patent. No extra-axial fluid collections. Brain: Redemonstration of intraparenchymal hemorrhage involving the left posterior parietal lobe with mild adjacent vasogenic edema. This measures approximately 4.2 cm in craniocaudal dimension and approximately 3.4 x 2.3 cm in axial cross-sectional dimension. Overall, finding is not significantly changed in size. No significant mass effect. No midline shift of structures. No suspicious enhancement. Longo-white matter interface appears intact. There are atherosclerotic calcifications of the intracranial segments of the internal carotid arteries. Skull and face: Calvarium and facial bones appear intact, without suspicious lesions. Orbits appear normal. Sinuses: Sinuses and mastoids are clear. HEAD CT ANGIOGRAPHY: Anterior circulation: There are atherosclerotic calcifications of the intracranial segments of the internal carotid arteries. Intracranial internal carotid arteries appear patent without high-grade stenosis. There is flow/opacification within the paired anterior cerebral arteries. There is opacification within the middle cerebral arteries. The anterior communicating artery is seen. No aneurysms are seen. No occlusion. Posterior circulation: Visualized portions of the vertebral arteries are patent and join to form a normal appearing basilar artery. No evidence for high-grade stenosis. No occlusions. There is opacification of the posterior cerebral arteries. No aneurysms are seen. NECK CT ANGIOGRAPHY: Carotid system: The great vessels demonstrate a conventional anatomy as they arise from the aortic arch. Atherosclerotic calcifications of the aortic arch are present. The origins of the common carotid arteries appear patent. The common carotid arteries appear patent throughout their visualized courses without high grade stenosis. The bifurcation regions are both patent without high grade stenosis. The internal carotid arteries demonstrate normal calibers and courses. Posterior circulation: The origins of the vertebral arteries both appear patent without hemodynamically significant stenosis. The more superior extracranial portions of both vertebral arteries also demonstrate normal courses and calibers. They join to form a normal appearing basilar artery. Soft tissues: Visualized neck soft tissues demonstrate no suspicious abnormalities. No suspicious adenopathy. No apical pneumothorax. Bones: No suspicious bony lesions. Visualized cervical spine appears normally aligned. No acute compression fractures of the vertebral bodies. Multilevel cervical spondylosis. IMPRESSION: Accounting for differences in imaging technique, redemonstration of intraparenchymal hemorrhage involving the left parietal lobe measuring approximately 3.4 x 2.3 x 4.2 cm. No definite mass lesion identified. No significant vasogenic edema or midline shift of structures. Consider further evaluation with MRI with and without contrast. No significant intracranial arterial abnormality is seen. No significant abnormality is seen within the arteries of the neck. Any quantitative measurements of stenosis were performed using NASCET criteria. Dictated by: Husam Mendoza M.D. on 02/24/2024 at 17:07 Approved by: Husam Mendoza M.D. on 02/24/2024 at 17:24
--- NOTE | 2024-02-24 16:51 | DI.MRI.S_ITS ---
PROCEDURE: MR HEAD/BRAIN WO/W CON INDICATIONS: mass vs bleed, requested by neurosx TECHNIQUE: Noncontrast axial T1 spin echo, axial T2 fast spin echo, sagittal and axial FLAIR, coronal T2 fast spin echo, axial gradient echo, axial diffusion and ADC through the brain. After the administration of contrast, axial and coronal and sagittal T1 spin echo with fat saturation through the brain. COMPARISON: [facility], CT, CT ANGIO HEAD AND NECK, 02/24/2024, 16:52. [facility], CT, CT HEAD/BRAIN WO CON, 02/24/2024, 15:21. FINDINGS: Image quality: Diagnostic CSF spaces: Basal cisterns are patent. No extra-axial fluid collections. Ventricles are stable in the in size and shape. Brain: No midline shift. Redemonstration of intraparenchymal lesion/hemorrhage involving the posterior left parietal lobe measuring approximately 3.6 x 2.6 cm in axial cross-sectional dimension (19/series 10) and approximately 4.3 cm in craniocaudal dimension (19/series 8). There is adjacent mild vasogenic edema. Minimal overlying sulcal effacement. No midline shift structures. There is mild thin peripheral diffusion restriction as well as more heterogeneous area of diffusion restriction posteriorly. Heterogeneous, mild enhancement of the periphery as well as a heterogeneous component posteriorly within area of hemorrhage as seen on comparison CT. Numerous scattered foci of variably sized blooming artifact noted throughout the bilateral cerebral hemispheres to include adjacent to area of hemorrhage. There is cerebral volume loss for age. There is periventricular white matter chronic small vessel ischemic change. The brainstem appears normal. No chronic ischemic insults. Normal intravascular flow voids are present. Skull and face: Calvarial marrow is normal in signal. Orbits appear normal. Sinuses: Sinuses and mastoids appear clear. IMPRESSION: Redemonstration of a 3.6 x 2.6 x 4.3 cm area hemorrhage involving the posterior left parietal lobe with associated heterogeneous diffusion restriction abnormalities and mild enhancement. No definite mass lesion visualized. There are also numerous scattered foci of blooming artifact suggestive of microhemorrhages. Findings may represent hypertensive intracranial hemorrhage versus cerebral amyloid angiopathy. Other considerations include possible hemorrhagic infarction if there are neuro deficits versus possible hemorrhage associated with neoplasm/metastasis. Hemorrhagic parenchymal contusion is conceivable if there is history of trauma. Recommend short interval follow-up brain MRI without and with contrast in approximately 1 month to allow for resolution of hemorrhage and to better evaluate for possible underlying mass. Dictated by: Husam Mendoza M.D. on 02/24/2024 at 20:56 Approved by: Husam Mendoza M.D. on 02/24/2024 at 21:15
[2024-02-24 17:30] LABS: UR Morphine/Opiate cutoff 300 Negative (Negative); Ur Creatinine Normal (Normal); Ur Specific Gravity Normal (Normal); Urine Amphetamines Negative (Negative); Urine Barbiturates Negative (Negative); Urine Benzodiazepines Negative (Negative); Urine Cocaine Negative (Negative); Urine MDMA Negative (Negative); Urine Methadone Negative (Negative); Urine Methamphetamines Negative (Negative); Urine Oxycodone Negative (Negative); Urine Phencyclidine Negative (Negative); Urine Tetrahydrocannabinol Negative (Negative); Urine Tricyclic Antidepressant Negative (Negative); Urine pH Normal (Normal)
[2024-02-24] MEDS: ACETAMINOPHEN 325 MG TABLET 975 MG PO (20:03)
[2024-02-25] VITALS: BP 151/87; PULSE 75; RESP 14; O2SAT 97
[2024-02-25] MEDS: MORPHINE 2 MG/ML INJ IV (00:06)
[2024-02-25] MEDS: ONDANSETRON 4 MG/2 ML INJ IV (00:06)
[2024-02-25 00:14] VITALS: PULSE 78; RESP 15
[2024-02-25 00:22] VITALS: BP 129/76; PULSE 85; RESP 21; O2SAT 95
[2024-02-25 00:30] VITALS: PULSE 85
[2024-02-25 01:00] VITALS: PULSE 75; RESP 18; O2SAT 95
[2024-02-25 01:19] VITALS: BP 142/71; PULSE 77; RESP 21; O2SAT 96
--- NOTE | 2024-02-25 01:30 | PC.NURSE ---
Report given to Colby CHAMORRO on [facility] [employer].
== END 2024-02-25 01:31 | disposition short-term general hospital (02) ==
PROVIDERS: Emergency Medicine; Emergency Provider Emergency Medicine; PCP Nurse Practitioner Family
DX: I61.8 Other nontraumatic intracerebral hemorrhage (principal); I48.91 Unspecified atrial fibrillation; Z79.01 Long term (current) use of anticoagulants; Z79.899 Other long term (current) drug therapy
CPT/HCPCS: 36415; 70450; 70496; 70498; 70553; 71045; 80053; 80305; 81003; 82962; 85025; 85610; 85730; 93005; 96365; 96375; 99285; 99291; 99292; A9579; J2270; J2405; J7168; Q9967

== ENCOUNTER 2024-03-30 10:22 | Outpatient (RCR) | payer OTHER, SELFPAY ==
--- NOTE | 2024-03-30 12:06 | OT.OP.EVAL ---
Visit Care Team Role Provider Type Karon Cueto MD Attending Provider Physician Family Provider Primary Care Provider Referring Provider Specialty: Internal Medicine Address: [place], [address] Email: Occupational Therapy Initial Evaluation OT Outpatient Adult Evaluation Start: 03/30/24 11:29 Freq: Status: Active Protocol: Document 03/30/24 11:29 AMS (Rec: 03/30/24 12:06 AMS [id number]) General Information - Adult Plan of Care Dates 03/30/24 - 05/11/24 Insurance Information [employer]vantage; * Auth x 99 visits; Referring PCP Karon Cueto MD Visit Start Time 10:40 Visit Stop Time 11:25 Treatment Setting Outpatient Care Note Type Initial Evaluation Identification Confirmed Yes Identification Confirmed By Self Goals Retirement Goals 1. Stephon will be modified independent with UE home exercise program with the support of his family and referring to written and visual instructions as needed. 2. 4/5 MMT R sh ER (versus initial 3+/5 MMT R sh ER). 3. 5/5 MMT R elbow extension (versus initial 4/5 MMT R elbow extension). Assessment/Plan Treatment Assessment Stephon is 84 years-old and is R hand dominant; he was referred to outpatient OT secondary to cardiovascular disease. Medical history intake form was completed; significant for headaches ( some), hernia repair (2017), thyroid disorder, a-fib, glaucoma, and strokes in 2005 and 2023. (-) wearing of glasses or contacts. He was admitted 02/25/24 and discharged to home 02/26/24 from [facility] w/ diagnosis of cardiovascular disease. 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 He resides with his . Reports independence with basic self care tasks; wears ( -) tie shoes. He is not driving; he is preparing meals , doing housekeeping tasks, and navigating computer; he is also building a chicken house . He reports that he is not typing as fast as he was. Ambulating without mobility AE ; although, does use a walking stick d/t slope in his yard. He reportedly walks 2 x a day (walking the dog) and touches his toes. QuickDASH UE Outcome Measure Score = 4.55. Hand/Wrist Pain Assessment Grid was completed; indication of 0 out of 10 on the pain scale. Whole Body Pain Assessment Grid was completed; indication of 1 out of 10 on the pain scale relative to the R shoulder. Functional bilateral UE AROM WFL; able to touch top of head , back of head, bilateral tops of shoulders, and his toes in sitting. No limitations observed w/ forearm pronation/ supination; wrist flexion/ext, wrist circles in both directions. MMT: 5/5 bilateral sh flex; 5/5 bilateral sh ext; 5/5 bilateral sh abd; 5/5 bilateral sh add; 5/5 bilateral sh IR; R ER 3+/5 vs L ER 5/5; 5/5 bilateral elbow flexion; R elbow ext 4/5 vs L elbow ext 5/5; 5/5 bilateral wrist flex; 5/5 bilateral wrist ext. Dynamometer II Strength Testing Results with elbow in 90 degrees Flexion = R property disposal officer 62 .0# of force (compared to same -aged peers 75+ males 65.7 +/- 21.0# of force) versus L property disposal officer 67.0# of force (compared to same-aged peers 75+ males 55.0 +/- 17.0# of force). Dynamometer II Strength Testing Results with Elbow Extended = R property disposal officer 58.0# of force versus L property disposal officer 70.0# of force. Lateral Ramon Pinch = R lateral pinch 15.0# of force ( compared to same-aged peers 75 + males 20.5 +/- 4.6# of force ) versus L lateral pinch 12.5# of force (compared to same- aged peers 75+ males 19.1 +/- 3.0# of force). Tip Pinch = R tip pinch 15.0# of force ( compared to same-aged peers 75 + males 14.0 +/- 3.4# of force ) versus L tip pinch 11.0# of force (compared to same-aged peers 75+ males 13.9 +/- 3.7# of force). 3-Jaw Pinch = R 3- jaw pinch 13.0# of force ( compared to same-aged peers 75 + males 18.7 +/- 4.2# of force ) versus L 3-jaw pinch 11.0# of force (compared to same- aged peers 75+ males 18.3 +/- 3.8# of force). The 9-Hole Peg Test is a timed test in which 9 pegs are inserted and removed from 9 holes in the pegboard with each hand. It is an assessment that can be used to assess hand dexterity. Stephon completed the test with his R hand in 34.2 seconds (compared to 75+ y.o. males 22.9 +/- 4. 0 seconds) and with his L hand in 34.2 seconds (compared to 75+ y.o. males 26.4 +/- 4.8 seconds). Performance with the R hand was > 2 SD above the mean compared to same-aged peers. Performance with the L hand was > 1 SD above the mean compared to same-aged male peers. Outpatient OT to address R UE weakness and establish UE HEP. Length of treatment (weeks) 6 Plan of Care Start Date 03/30/24 Plan of Care End Date 05/11/24 Treatment Frequency Once a Week Therapeutic Contents Active Range of Motion, Functional Activities,Home Exercise Program,Joint Protection,Manual Therapy, Education,Neurodevelopment Treatment,Neuromuscular Re- Education,Self-Care,Stretching /Flexibility Activities, Therapeutic Activities, Therapeutic Exercises, Modalities Modalities As Needed,As Prescribed Additional Types of Modalities Heat/Ice/Ultrasound/E-stim
--- NOTE | 2024-05-12 10:29 | OT.OP.DC ---
Visit Care Team Role Provider Type Karon Cueto MD Attending Provider Physician Family Provider Primary Care Provider Referring Provider Address: [place], [address] Email: OT Outpatient OT Outpatient Adult Evaluation Start: 03/30/24 11:29 Freq: Status: Active Protocol: Document 03/30/24 11:29 AMS (Rec: 03/30/24 12:06 AMS [id number]) General Information - Adult Visit Information Plan of Care Dates 03/30/24 - 05/11/24 Insurance Information [employer]vantage; * Auth x 99 visits; Referring PCP Karon Cueto MD Session Time Visit Start Time 10:40 Visit Stop Time 11:25 Setting Treatment Setting Outpatient Care Visit Type Note Type Initial Evaluation Identification Identification Confirmed Yes Identification Confirmed By Self Goals Correction 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 Stephon will be modified independent with UE home exercise program with the support of his family and referring to written and visual instructions as needed. 2. 4/5 MMT R sh ER (versus initial 3+/5 MMT R sh ER). 3. 5/5 MMT R elbow extension (versus initial 4/5 MMT R elbow extension). Assessment/Plan Assessment Treatment Assessment Stephon is 84 years-old and is R hand dominant; he was referred to outpatient OT secondary to cardiovascular disease. Medical history intake form was completed; significant for headaches ( some), hernia repair (2017), thyroid disorder, a-fib, glaucoma, and strokes in 2005 and 2023. (-) wearing of glasses or contacts. He was admitted 02/25/24 and discharged to home 02/26/24 from [facility] w/ diagnosis of cardiovascular disease. 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 He resides with his . Reports independence with basic self care tasks; wears ( -) tie shoes. He is not driving; he is preparing meals , doing housekeeping tasks, and navigating computer; he is also building a chicken house . He reports that he is not typing as fast as he was. Ambulating without mobility AE ; although, does use a walking stick d/t slope in his yard. He reportedly walks 2 x a day (walking the dog) and touches his toes. QuickDASH UE Outcome Measure Score = 4.55. Hand/Wrist Pain Assessment Grid was completed; indication of 0 out of 10 on the pain scale. Whole Body Pain Assessment Grid was completed; indication of 1 out of 10 on the pain scale relative to the R shoulder. Functional bilateral UE AROM WFL; able to touch top of head , back of head, bilateral tops of shoulders, and his toes in sitting. No limitations observed w/ forearm pronation/ supination; wrist flexion/ext, wrist circles in both directions. MMT: 5/5 bilateral sh flex; 5/5 bilateral sh ext; 5/5 bilateral sh abd; 5/5 bilateral sh add; 5/5 bilateral sh IR; R ER 3+/5 vs L ER 5/5; 5/5 bilateral elbow flexion; R elbow ext 4/5 vs L elbow ext 5/5; 5/5 bilateral wrist flex; 5/5 bilateral wrist ext. Dynamometer II Strength Testing Results with elbow in 90 degrees Flexion = R business advisor 62 .0# of force (compared to same -aged peers 75+ males 65.7 +/- 21.0# of force) versus L business advisor 67.0# of force (compared to same-aged peers 75+ males 55.0 +/- 17.0# of force). Dynamometer II Strength Testing Results with Elbow Extended = R business advisor 58.0# of force versus L business advisor 70.0# of force. Lateral Ramon Pinch = R lateral pinch 15.0# of force ( compared to same-aged peers 75 + males 20.5 +/- 4.6# of force ) versus L lateral pinch 12.5# of force (compared to same- aged peers 75+ males 19.1 +/- 3.0# of force). Tip Pinch = R tip pinch 15.0# of force ( compared to same-aged peers 75 + males 14.0 +/- 3.4# of force ) versus L tip pinch 11.0# of force (compared to same-aged peers 75+ males 13.9 +/- 3.7# of force). 3-Jaw Pinch = R 3- jaw pinch 13.0# of force ( compared to same-aged peers 75 + males 18.7 +/- 4.2# of force ) versus L 3-jaw pinch 11.0# of force (compared to same- aged peers 75+ males 18.3 +/- 3.8# of force). The 9-Hole Peg Test is a timed test in which 9 pegs are inserted and removed from 9 holes in the pegboard with each hand. It is an assessment that can be used to assess hand dexterity. Stephon completed the test with his R hand in 34.2 seconds (compared to 75+ y.o. males 22.9 +/- 4. 0 seconds) and with his L hand in 34.2 seconds (compared to 75+ y.o. males 26.4 +/- 4.8 seconds). Performance with the R hand was > 2 SD above the mean compared to same-aged peers. Performance with the L hand was > 1 SD above the mean compared to same-aged male peers. Outpatient OT to address R UE weakness and establish UE HEP. Plan Length of treatment (weeks) 6 Plan of Care Start Date 03/30/24 Plan of Care End Date 05/11/24 Treatment Frequency Once a Week Therapeutic Contents Active Range of Motion, Functional Activities,Home Exercise Program,Joint Protection,Manual Therapy, Education,Neurodevelopment Treatment,Neuromuscular Re- Education,Self-Care,Stretching /Flexibility Activities, Therapeutic Activities, Therapeutic Exercises, Modalities Modalities As Needed,As Prescribed Additional Types of Modalities Heat/Ice/Ultrasound/E-stim Functional Wrist/Hand Scan Hand Side Sensory Assessment Sensory Profile2 OT Outpatient Treatment Note - Adult Start: 03/30/24 11:29 Freq: Status: Active Protocol: Document 05/12/24 10:27 [facility] (Rec: 05/12/24 10:29 [facility] [id number]) OT Outpatient Adult Treatment Note Visit Information Plan of Care Dates 03/30/24 - 05/11/24 Setting Treatment Setting Outpatient Care Visit Type Note Type Discharge Summary - Subjective Observations Stephon has not been seen in the outpatient setting by OT since 03/30/2024 and outpatient OT POC on . Thus, recommend d/c from outpatient OT at this time and therapist to re- evaluate as deemed appropriate by PCP w/ receipt of new referral. - Objective Correction Goals ALL GOALS D/C 05/12/2024 1. Stephon will be modified independent with UE home exercise program with the support of his family and referring to written and visual instructions as needed. 2. 4/5 MMT R sh ER (versus initial 3+/5 MMT R sh ER). 3. 5/5 MMT R elbow extension (versus initial 4/5 MMT R elbow extension). - - Assessment Assessment of Improvement Stephon has not been seen in the outpatient setting by OT since 03/30/2024 and outpatient OT POC on . Thus, recommend d/c from outpatient OT at this time and therapist to re- evaluate as deemed appropriate by PCP w/ receipt of new referral. - Plan Therapy Recommendations Discharge from Occupational Therapy
== END 2024-05-12 12:53 | disposition home or self-care (01) ==
LOC: OT 10:22
PROVIDERS: Family Provider Internal Medicine; PCP Internal Medicine; Referring Provider Internal Medicine; Visit Provider Internal Medicine
DX: I67.9 Cerebrovascular disease, unspecified (principal)
CPT/HCPCS: 97165